=== PATIENT | female | born 1940 | race Caucasian/White ===

== ENCOUNTER 2022-05-17 23:37 | Inpatient (IN) | payer MEDICARE, OTHER ==
[~2022-05-17] VITALS: Ht 152.4 cm; Wt 55.8 kg
[~2022-05-17 23:37] MED LIST: AMILORIDE HCL PO; AVAPRO; BENICAR40 MG PO; CALCIUM600 MG PO; FLEXERIL; FUROSEMIDE20 MG PO; GABAPENTIN300 MG PO; HYDROCODON-ACE1 EA11 PO; LORAZEPAM1 MG PO; LYRICA300 MG PO; MAGNESIUM250 M1 PO; MULTIVITAMIN PO; SYMBICORT 80-10.2 GM IH; TAMOXIFEN; VITAMIN D3 PO; Z.0.DICLOFENAC SODI7 PO; Z.0.LEVOXYL100 MCG PO; Z.0.NEXIUM40 MG PO; Z.0.PREMARIN0.45 MG PO
[2022-05-18] VITALS (8 sets, daily range): BP systolic 88–115; BP diastolic 55–75
[2022-05-18] MEDS ORDERED: SODIUM CHLORIDE FLUSH 10 ML SYR IV PRN
[2022-05-18 00:12] LABS: BASOPHILS % 0.1 % (0.0-1.0); HEMATOCRIT 45.2 % (34.2-44.1); HEMOGLOBIN 14.8 g/dL (12.0-16.0); LYMPHOCYTES # (AUTO) 0.8 (1.0-3.2); LYMPHOCYTES % 4.8 % (18.0-39.1); MEAN CORPUSCULAR HEMOGLOBIN 30.8 pg (28-32); MEAN CORPUSCULAR HGB CONC 32.7 g/dL (31-35); MONOCYTES # (AUTO) 1.3 (0.2-0.8); MONOCYTES % 7.7 % (4.4-11.3); NEUTROPHILS # (AUTO) 14.4 (2.1-6.9); PLATELET COUNT 210 x10e3/uL (140-360); RED BLOOD COUNT 4.81 x10e6/uL (3.6-5.1); RED CELL DISTRIBUTION WIDTH 13.1 % (11.7-14.4)
[2022-05-18 00:21] LABS: INR 1.06; PARTIAL THROMBOPLASTIN TIME 24.7 seconds (23.8-35.5); PROTHROMBIN TIME 14.3 seconds (11.9-14.5)
[2022-05-18 00:30] LABS: ALBUMIN 4.1 g/dL (3.5-5.0); ALBUMIN/GLOBULIN RATIO 1.3 (0.8-2.0); ANION GAP 19.3 mmol/L (8-16); CALCIUM 9.5 mg/dL (8.4-10.2); CREATININE, SERUM 1.05 mg/dL (0.57-1.11); POTASSIUM 5.3 mmol/L (3.5-5.1)
[2022-05-18] MEDS ORDERED: FUROSEMIDE INJ 10 MG/ML 4 ML VIAL IV ONE (02:15)
[2022-05-18 02:37] LABS: CLARITY,URINE CLOUDY (CLEAR); COLOR,URINE YELLOW (YELLOW); KETONES,URINE 1+ (NEGATIVE); LEUKOCYTE ESTERASE ,URINE NEGATIVE (NEGATIVE); NITRITE,URINE POSITIVE (NEGATIVE); PROTEIN,URINE DIPSTICK TRACE (NEGATIVE); URINE UROBILINOGEN 0.2 mg/dL (0.2 - 1)
[2022-05-18 02:50] LABS: BACTERIA,URINE MANY /HPF; EPITHELIAL CELLS,URINE FEW /LPF
[2022-05-18] MEDS ORDERED: ACETAMINOPHEN 325 MG TAB PO PRN (03:15)
[2022-05-18] MEDS: ONDANSETRON HCL INJ 2MG/ML 2ML 2 MG/ML VIAL IV PRN ×3 (04:59→17:17)
[2022-05-18] MEDS: Morphine 2mg Syringe 2 MG/ML SYR IV PRN ×3 (05:00→17:17)
[2022-05-18] MEDS ORDERED: TYLENOL325 MG PO (10:26)
[2022-05-18] MEDS ORDERED: ZOLOFT50 MG PO (10:26)
[2022-05-18] MEDS ORDERED: DOCUSATE SODIUM 100 MG CAP PO PRN (10:30)
[2022-05-18] MEDS ORDERED: MELATONIN 3 MG TAB PO PRN (10:30)
[2022-05-18] MEDS ORDERED: SIMETHICONE 80 MG CHEW PO PRN (10:30)
[2022-05-18] MEDS ORDERED: BUDESONIDE/FORMOTEROL FUMARATE 80/4.5MCG 6.9 GM INH AEROSOL IH SCH (11:15)
[2022-05-18 11:32] LABS: CHOL/HDL RATIO 2.5 (3.0-3.6)
[2022-05-18] MEDS ORDERED: BUDESONIDE/FORMOTEROL FUMARATE 80/4.5MCG 6.9 GM INH AEROSOL IH PRN (12:15)
[2022-05-18] MEDS ORDERED: OYST-CAL-D 500MG TABLET PO SCH (15:00)
[2022-05-18] MEDS: ENOXAPARIN SOD INJ 40 MG/0.4 ML SYR SC SCH (17:17)
[2022-05-18] MEDS: SENNOSIDES 8.6 MG TAB PO SCH (21:00)
[2022-05-18] MEDS ORDERED: SODIUM CHLORIDE 0.9% 250ML 250 ML ONE (22:04)
[2022-05-19] VITALS (9 sets, daily range): BP systolic 84–121; BP diastolic 52–65
[2022-05-19] MEDS: LEVOTHYROXINE SODIUM 88 MCG TAB PO SCH (06:14)
[2022-05-19 08:40] LABS: BASOPHILS % 0.2 % (0.0-1.0); EOSINOPHILS # (AUTO) 0.1 (0.0-0.4); EOSINOPHILS % 0.4 % (0.0-6.0); HEMATOCRIT 40.2 % (34.2-44.1); LYMPHOCYTES # (AUTO) 2.3 (1.0-3.2); LYMPHOCYTES % 19.1 % (18.0-39.1); MEAN CORPUSCULAR HEMOGLOBIN 30.4 pg (28-32); MEAN CORPUSCULAR HGB CONC 32.3 g/dL (31-35); MEAN CORPUSCULAR VOLUME 93.9 fL (81-99); MONOCYTES # (AUTO) 0.9 (0.2-0.8); MONOCYTES % 7.6 % (4.4-11.3); NEUTROPHILS # (AUTO) 8.7 (2.1-6.9); NEUTROPHILS % 72.5 % (38.7-80.0); PLATELET COUNT 171 x10e3/uL (140-360); RED BLOOD COUNT 4.28 x10e6/uL (3.6-5.1); RED CELL DISTRIBUTION WIDTH 13.6 % (11.7-14.4)
[2022-05-19] MEDS: Morphine 2mg Syringe 2 MG/ML SYR IV PRN (08:57)
[2022-05-19] MEDS: IRBESARTAN 150 MG TAB PO SCH (08:57)
[2022-05-19] MEDS: SENNOSIDES 8.6 MG TAB PO SCH ×2 (08:58→21:00)
[2022-05-19] MEDS: SERTRALINE HCL 50 MG TAB PO SCH (08:58)
[2022-05-19 09:00] LABS: ANION GAP 18.2 mmol/L (8-16); MAGNESIUM 1.9 MG/DL (1.3-2.1); PHOSPHORUS 4.5 MG/DL (2.3-4.7); POTASSIUM 4.2 mmol/L (3.5-5.1)
[2022-05-19] MEDS ORDERED: MULTIVITAMINS/MINERALS TAB PO SCH (09:00)
[2022-05-19] MEDS: TRAMADOL HCL 50 MG TAB PO PRN (13:05)
[2022-05-19] MEDS: ENOXAPARIN SOD INJ 40 MG/0.4 ML SYR SC SCH (17:36)
[2022-05-20 00:45] VITALS: BP 102/50
[2022-05-20 05:07] VITALS: BP 99/65
[2022-05-20 06:02] LABS: BASOPHILS % 0.5 % (0.0-1.0); EOSINOPHILS # (AUTO) 0.1 (0.0-0.4); EOSINOPHILS % 1.4 % (0.0-6.0); HEMATOCRIT 37.2 % (34.2-44.1); HEMOGLOBIN 11.9 g/dL (12.0-16.0); LYMPHOCYTES # (AUTO) 1.7 (1.0-3.2); LYMPHOCYTES % 19.7 % (18.0-39.1); MEAN CORPUSCULAR HEMOGLOBIN 30.5 pg (28-32); MEAN CORPUSCULAR VOLUME 95.4 fL (81-99); MONOCYTES % 11.2 % (4.4-11.3); NEUTROPHILS # (AUTO) 5.9 (2.1-6.9); NEUTROPHILS % 66.9 % (38.7-80.0); PLATELET COUNT 169 x10e3/uL (140-360); RED CELL DISTRIBUTION WIDTH 13.4 % (11.7-14.4)
[2022-05-20] MEDS: LEVOTHYROXINE SODIUM 88 MCG TAB PO SCH (06:11)
[2022-05-20 06:20] LABS: ANION GAP 16.3 mmol/L (8-16); CALCIUM 8.6 mg/dL (8.4-10.2); CREATININE, SERUM 1.79 mg/dL (0.57-1.11); MAGNESIUM 2.1 MG/DL (1.3-2.1); PHOSPHORUS 4.6 MG/DL (2.3-4.7); POTASSIUM 4.3 mmol/L (3.5-5.1)
[2022-05-20 08:00] VITALS: BP 115/71
[2022-05-20 09:15] VITALS: BP 115/71
[2022-05-20] MEDS: IRBESARTAN 150 MG TAB PO SCH (09:30)
[2022-05-20] MEDS: SENNOSIDES 8.6 MG TAB PO SCH (09:31)
[2022-05-20] MEDS: SERTRALINE HCL 50 MG TAB PO SCH (09:31)
[2022-05-20] MEDS: TRAMADOL HCL 50 MG TAB PO PRN ×2 (09:43→17:11)
[2022-05-20] MEDS ORDERED: SODIUM CHLORIDE 0.9% 1000ML 1,000 ML IV SCH (10:45)
[2022-05-20] MEDS ORDERED: ACETAMINOPHEN/CODEINE 300MG - 30MG TAB PO PRN (10:45)
[2022-05-20 12:30] VITALS: BP 115/82
[2022-05-20] MEDS ORDERED: CEPHALEXIN500 MG PO (13:28)
[2022-05-20] MEDS ORDERED: TYLENOL325 MG PO (13:28)
[2022-05-20] MEDS ORDERED: ULTRAM 50MG50 MG PO (13:28)
[2022-05-20] MEDS ORDERED: SENOKOT8.6 MG PO (13:28)
[2022-05-20] MEDS ORDERED: ONDANSETRON HCL 4 MG ORAL DISINTEGRATING TAB PO PRN (13:45)
[2022-05-20] MEDS: ENOXAPARIN SOD INJ 40 MG/0.4 ML SYR SC SCH (16:48)
[2022-05-20 17:01] VITALS: BP 105/64
== END 2022-05-20 17:40 | DRG 536 ==
LOC: ER 23:49 → ERHOLD 05-18 03:13 → MED/SURG2 05-18 03:50
PROVIDERS: ADMIT Internal Medicine; ATTEND Internal Medicine
DX: S32.511A Fracture of superior rim of right pubis, initial encounter for closed fracture (principal); S32.19XA Other fracture of sacrum, initial encounter for closed fracture; E87.20 Acidosis, unspecified; N39.0 Urinary tract infection, site not specified; N17.9 Acute kidney failure, unspecified; W18.39XA Other fall on same level, initial encounter; Y92.003 Bedroom of unspecified non-institutional (private) residence as the place of occurrence of the external cause; E87.5 Hyperkalemia; M81.0 Age-related osteoporosis without current pathological fracture; F03.90 Unspecified dementia, unspecified severity, without behavioral disturbance, psychotic disturbance, mood disturbance, and anxiety; S50.02XA Contusion of left elbow, initial encounter; Z87.891 Personal history of nicotine dependence; I12.9 Hypertensive chronic kidney disease with stage 1 through stage 4 chronic kidney disease, or unspecified chronic kidney disease; N18.9 Chronic kidney disease, unspecified; Z20.822 Contact with and (suspected) exposure to COVID-19
CPT/HCPCS: 0223U; 36415; 51700; 71045; 72192; 80048; 80053; 80061; 81001; 83036; 83735; 84100; 84132; 85025; 85610; 85730; 93005; 94760; 94799; 99252; 99285; J0696; J1650; J1940; J2270; J2405; J7030; J7050